=== PATIENT | female | born 1975 | race Caucasian/White ===

== ENCOUNTER → 2018-06-18 12:41 | Outpatient (CLI) | payer OTHER, SELFPAY ==
--- NOTE | 2018-06-18 12:44 | VDLE_ITS ---
Reason For Study: LEG PAIN AND SWELLING RIGHT LEFT GSV is normal. GSV is normal. CFV is compressible, spontaneous, phasic, CFV is compressible, spontaneous, phasic, competent and demonstrates normal competent, and demonstrates normal augmentation. augmentation. FV is compressible, spontaneous, phasic, FV is compressible, spontaneous, phasic, competent and demonstrates normal competent and demonstrates normal augmentation. augmentation. POP V is compressible, spontaneous, phasic, POP V is compressible, spontaneous, phasic, competent and demonstrates normal competent and demonstrates normal augmentation. augmentation. T/P Trunk is compressible. T/P Trunk is compressible. PTV is compressible. PTV is compressible. RT PerV is compressible. LT PerV is compressible. SFJ is competent SFJ is INCOMPETENT GSV is INCOMPETENT with reflux greater GSV is INCOMPETENT with reflux greater than .5 sec and diameter of .39 x .40 cm than .5 sec and diameter of .37 x .41 cm SSV is competent. SSV is competent. Procedure Exam performed in department. Interpretation Summary Deep veins of the lower extremities are bilaterally patent and compressible segmentally. There is no evidence of deep vein thrombosis on either side. Valvular competence appears intact within the proximal deep venous systems bilaterally. The greater saphenous veins appear bilaterally patent and compressible segmentally. The right sapheno-femoral junction is competent . The left sapheno- femoral junction is incompetent . Segmental valvular incompetence is noted within the greater saphenous veins bilaterally. Small saphenous veins are patent and competent bilaterally. Ordering Physician: MIRNA ZARCO Referring Physician: Mirna Zarco Performed By: Anita Puentes RVT
== END ==
PROVIDERS: Family Provider Nurse Practitioner; PCP Nurse Practitioner; Visit Provider Nurse Practitioner
DX: I83.90 Asymptomatic varicose veins of unspecified lower extremity (principal); M79.661 Pain in right lower leg; R60.9 Edema, unspecified
CPT/HCPCS: 93970

== ENCOUNTER → 2021-02-26 | Outpatient (CLI) | payer OTHER, SELFPAY ==
[2021-02-26 19:45] VITALS: BMI 23.8
[2021-02-26 21:58] LABS: Absolute Lymphocyte Count 3.12 X10^3/uL (0.83-4.51); Absolute Neutrophil Count 3.4 X10^3/uL (2.0-7.7); Basophil# 0.07 X10^3/uL; Eosinophil# 0.12 X10^3/uL; Eosinophils% 1.7 % (0-5); Hematocrit 43.8 % (37-47); Hemoglobin 14.9 g/dL (12.0-15.0); Lymphocyte # 3.12 X10^3/ul (0.83-4.51); Lymphocyte % 43.9 % (19-41); Mean Corpuscular Hgb 33.1 pg (27.0-32.0); Mean Corpuscular Volume 97.3 fL (81-99); Mean Platelet Vol. 10.5 fl (6.2-12.0); Monocyte# 0.41 X10^3/uL; Monocyte% 5.8 % (0-10); NRBC Flagged by Analyzer 0 % (0-5); Neutrophil # 3.38 X10^3/uL (2.7-7.7); Neutrophil % 47.5 % (47-70); Platelet Count 261 K/mm3 (150-450); RBC Distribution Width CV 11.7 % (11.6-14.6); RBC Distribution Width SD 42.4 fl (35.1-43.9); White Blood Count 7.1 K/mm3 (4.4-11.0)
[2021-02-26 22:12] LABS: ALB/GLOB Ratio 1.2 RATIO (0.9-2.4); AST(SGOT) 10 U/L (15-37); Alanine Aminotransfer ALT/SGPT 19 U/L (13-56); Alkaline Phosphatase 51 U/L (45-117); Anion Gap 4 (5-15); BUN 7 mg/dL (7-18); BUN/Creat Ratio 9.2 RATIO (10-20); Calcium,Total 8.5 mg/dL (8.5-10.1); Chloride 105 mmol/L (98-107); Cholesterol 194 mg/dL (200); Creatinine, Serum 0.76 mg/dL (0.55-1.02); EST Glomerular Filtration Rate 88 mL/min (>60); Est Glom Filt Rate - Afr Amer 106 mL/min (>60); Globulin 3.4 g/dL (2.2-4.2); Glucose 94 mg/dL (74-106); High Density Lipoprotein 65 mg/dL; Potassium 3.4 mmol/L (3.5-5.1); Protein, Total 7.4 g/dL (6.4-8.2); Sodium Level 138 mmol/L (136-145); Triglycerides 55 mg/dL; Very Low Density Lipoprotein 11 mg/dL (5-40)
== END | disposition home or self-care (01) ==
PROVIDERS: PCP Nurse Practitioner; Referring Provider Nurse Practitioner; Visit Provider Nurse Practitioner
DX: E78.00 Pure hypercholesterolemia, unspecified (principal); K43.9 Ventral hernia without obstruction or gangrene
CPT/HCPCS: 80053; 80061; 85025

== ENCOUNTER → 2021-04-06 | Outpatient (CLI) | payer OTHER, SELFPAY ==
[2021-04-06 19:36] VITALS: BMI 25.2
== END | disposition home or self-care (01) ==
PROVIDERS: Visit Provider Nurse Practitioner
DX: N30.90 Cystitis, unspecified without hematuria (principal)
CPT/HCPCS: 87086; 87088; 87186

== ENCOUNTER → 2022-04-27 | Outpatient (CLI) | payer OTHER, SELFPAY ==
[2022-04-27 23:36] LABS: Lyme Ab Screen Interpretation REF LAB
[2022-04-30 17:03] LABS: Lyme Scn Total Ab w/Rflx Negative (Negative)
== END | disposition home or self-care (01) ==
PROVIDERS: Visit Provider Nurse Practitioner
DX: S00.96XA Insect bite (nonvenomous) of unspecified part of head, initial encounter (principal); W57.XXXA Bitten or stung by nonvenomous insect and other nonvenomous arthropods, initial encounter
CPT/HCPCS: 86618

== ENCOUNTER → 2023-12-14 | Outpatient (CLI) | payer OTHER, SELFPAY ==
--- OUTSIDE RECORDS SUMMARY | 2023-12-14 21:57 | XMS RPT_ITS | CCD ---
Author Name Unknown Address [address] [place] [address] Organization [facility] Care Team Providers Care 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 Name Role Phone Mirna Zarco Primary Care Provider [phone] Lizbeth Montoya PA-C Unavailable [phone] Gerardo WILLARD.Mirna WARD Primary Care Provide r Teresa Daugherty MD Unavailable Jaylene Leonardo MD Unavailable Lizbeth Montoya PA-C Unavailable Gerardo WILLARD.Mirna WARD Primary Care Provide r Teresa Daugherty MD Unavailable Jaylene Leonardo MD Unavailable Mirna Zarco Primary Care Provider [phone] Gerardo Ms. Mirna Zavala Primary Care UnavailMD RIGOBERTO Otto Admitting Unavailable MD RIGOBERTO LEW Attending Dr. Raul Ponce Referring Unavailable Zarco, Ms. Mirna Zavala Primary Care UnavailMD RIGOBERTO Otto Admitting Unavailable MD RIGOBERTO LEW Attending Unavailable Dr. Raul Castelan Referring Unavailable MD RIGOBERTO LEW Admitting Unavailable MD RIGOBERTO LEW Attending Unavailable Dr. Raul Castelan Referring Unavailable Zarco, Ms. Mirna Zavala Primary Care Unavailab Jerome ELECTROSTATIC POWDER COATING TECHNICIAN-Jayesh WARDa L Primary Care Provide r Rigoberto Lew MD Unavailable MIRNA ZARCO Primary Care Unavailable RIGOBERTO LEW Attending Unavailable ZARCO, MIRNA L Primary Care Unavailable Zarco, Mirna Primary Care Provider CYNDIE MCCAIN Referring Unavailable ZARCO, MIRNA Primary Care Unavailable TERESA DAUGHERTY Referring Unavailable ZARCO, MIRNA Primary Care Unavailable CYNDIE MCCAIN Attending Unavailable CYNDIE MCCAIN Referring Unavailable ZARCO, MIRNA Primary Care Unavailable CYNDIE MCCAIN Attending Unavailable ZARCO, MIRNA Primary Care Unavailable LIZBETH MONTOYA Referring Unavailable ZARCO, MIRAN Primary Care Unavailable LIZBETH MONTOYA Referring Unavailable ZARCO, MIRNA Primary Care Unavailable CYNDIE MCCAIN Attending Unavailable CYNDIE MCCAIN Referring Unavailable ZARCO, MIRNA Primary Care Unavailable Allergies Allergy Classification Reported Allergen(s) Allergy Type Date of Onset Reaction(s) Facility (8 sources) Warfarin Drug Allergy 7 Nausea And Vomiting, GI Upset [place], [place] (11 sources) Ciprofloxacin; Translations: [CIPROFLOXACIN] Drug Allergy 1 Itching, Rash [facility] (5 sources) NITROFURANTOIN, MACROCRYSTALS / Nitrofurantoin, Monohydrate; Translations: [NITROFURANTOIN MONOHYD/M-CRYST] Drug Allergy 1 [facility] Work Phone: (11 sources) Warfarin; Translations: [WARFARIN] Drug Allergy 7 Other: See Comments, Nausea Only, Other, Nausea And Vomiting, Headache, Unknown, GI Upset [facility] (8 sources) Nitrofurantoin; Translations: [NITROFURANTOIN] Drug Allergy 1 [facility] Medications Current Medications Medication Drug Class(es) Dates Sig (Normalized) Sig (Original) acetaminophen 500 mg oral tablet (5 sources) Start: 10-01-2018 take 1 tablet by mouth every four hours as needed for pain acetaminophen (APAP EXTRA STRENGTH) 500 MG tablet Take 1 tablet by mouth every 4 hours as needed for Pain 50 tablet 0 10/01/2018 Active [id number] 200 actuat albuterol 0.09 mg/actuat metered dose inhaler (10 sources) beta2-Adrenergic Agonist Start: 09-20-2022 take 2 puff(s) by inhalation every four hours as needed for wheezing albuterol 108 (90 Base) MCG/ACT inhaler inhale 2 puffs into the lungs every 4 hours as needed for shortness of breath or wheezing. 0 09/20/2022 Active Completed/Discontinued Medications Medication Drug Class(es) Dates Sig (Normalized) Sig (Original) amoxicillin 875 mg / clavulanate 125 mg oral tablet (3 sources) Penicillin-class Antibacterial Start: 06-14-2022 End: 07-10-2023 amoxicillin-clavul anic acid (AUGMENTIN) 875-125 mg per tablet apixaban 5 mg oral tablet (2 sources) Factor Xa Inhibitor Start: 05-04-2023 ELIQUIS 5 mg tab(s) cefdinir 300 mg oral capsule (1 source) Cephalosporin Antibacterial Start: 03-20-2023 End: 07-10-2023 take 1 capsule by mouth every twelve hours cefdinir (OMNICEF) 300 mg capsule Take 1 capsule by mouth every 12 hours. 0 03/20/2023 07/10/2023 Discontinued Problems Active Problems Problem Classification Problem Date Documented Date Episodic/Chronic Acute cerebrovascular disease (3 sources) Cerebrovascular accident; Translations: [Cerebral infarction, unspecified] 09-15-2021 Chronic Chronic obstructive pulmonary disease and bronchiectasis (3 sources) Chronic bronchitis; Translations: [Unspecified chronic bronchitis] 09-15-2021 Chronic Melanomas of skin (4 sources) Malignant melanoma of skin, unspecified; Translations: [Malignant melanoma] Onset: 03-07-2023 09-05-2023 Chronic Menstrual disorders (20 sources) Menometrorrhagia; Translations: [Dysmenorrhea] Onset: 10-01-2018 10-01-2018 Chronic Nonmalignant breast conditions (6 sources) Breast lump; Translations: [Unspecified lump in the right breast, overlapping quadrants] Episodic Nutritional deficiencies (3 sources) Vitamin D deficiency; Translations: [Vitamin D deficiency, unspecified] Onset: 06-18-2021 06-18-2021 Chronic Other female genital disorders (12 sources) Abnormal uterine bleeding; Translations: [Abnormal uterine and vaginal bleeding, unspecified] Onset: 10-01-2018 10-01-2018 Chronic Other nutritional; endocrine; and metabolic disorders (1 source) Homocystinuria; 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] Onset: 03-07-2023 Chronic Pulmonary heart disease (7 sources) H/O: pulmonary embolus; Translations: [Personal history of pulmonary embolism] Onset: 03-07-2023 09-15-2021 Episodic Residual codes; unclassified (3 sources) Hereditary disorder of endocrine system; Translations: [Genetic susceptibility to other disease] 09-15-2021 Episodic Residual codes; unclassified (1 source) Family history of breast cancer; Translations: [Family history of malignant neoplasm of breast] Episodic Residual codes; unclassified (1 source) Past history of procedure; Translations: [Other specified postprocedural states] Episodic Residual codes; unclassified (1 source) At risk of breast cancer; Translations: [Other specified personal risk factors, not elsewhere classified] Episodic Unclassified (2 sources) Unspecified lump in the right breast, overlapping quadrants; Translations: [Unspecified lump in the right breast, overlapping quadrants] Onset: 09-14-2023 Viral infection (1 source) Herpes zoster; Translations: [Zoster without complications] Onset: 08-05-2023 08-05-2023 Episodic Past or Other Problems Problem Classification Problem Date Documented Da te Episodic/Chronic Abdominal hernia (3 sources) Obstruction co-occurrent and due to bilateral recurrent inguinal hernia; Translations: [Bilateral inguinal hernia, with obstruction, without gangrene, recurrent] Onset: 09-15-2021 09-17-2021 Episodic Other aftercare (12 sources) Long-term current use of anticoagulant; Translations: [senior care (current) use of anticoagulants] Onset: 10-01-2018 10-01-2018 Episodic Other screening for suspected conditions (not mental disorders or infectious disease) (13 sources) Patient encounter status; Translations: [Encounter for screening for malignant neoplasm of vagina] Onset: 02-06-2023 Episodic Results Test Name Value Interpretation Reference Range Facil ity Vital Signs Date Time Vital Sign Value Performing Clinician Facility 09-05-2023 10:10-0400 Body height 168.3 cm Rigoberto Lew MD Work Phone: [facility] 09-05-2023 10:10-0400 Body mass index (BMI) [Ratio] 27.43 kg/m2 Rigoberto Lew MD Work Phone: [facility] 09-05-2023 10:10-0400 Body temperature 97.9 [degF] Rigoberto Lew MD Work Phone: [facility] 09-05-2023 10:10-0400 Body weight 77.7 kg Rigoberto Lew MD Work Phone: [facility] 09-05-2023 10:10-0400 Diastolic blood pressure 74 mm[Hg] Rigoberto Lew MD Work Phone: [facility] 09-05-2023 10:10-0400 Heart rate 72 /min Rigoberto Lew MD Work Phone: [facility] 09-05-2023 10:10-0400 Respiratory rate 18 /min Rigoberto Lew MD Work Phone: [facility] 09-05-2023 10:10-0400 SaO2% (BldA) [Mass fraction] 97 % Rigoberto Lew MD Work Phone: [facility] 09-05-2023 10:10-0400 Systolic blood pressure 113 mm[Hg] Rigoberto Lew MD Work Phone: [facility] 07-10-2023 08:52-0400 Body height 170.2 cm Lizbeth Montoya PA-C Work Phone: [facility] 07-10-2023 08:52-0400 Body weight 79.38 kg Lizbeth Montoya PA-C Work Phone: [facility] 07-10-2023 08:52-0400 Diastolic blood pressure 78 mm[Hg] Lizbeth Montoya PA-C Work Phone: [facility] 07-10-2023 08:52-0400 Systolic blood pressure 116 mm[Hg] Lizbeth Montoya PA-C Work Phone: [facility] 02-23-2023 08:58-0400 Body height 167.6 cm Cyndie Calderonppard ELECTROSTATIC POWDER COATING TECHNICIAN - FOOD PREP WORKER Work Phone: [facility] Status Overload 02-23-2023 08:58-0400 Body mass index (BMI) [Ratio] 27.79 kg/m2 Cyndie Calderonppard ELECTROSTATIC POWDER COATING TECHNICIAN - FOOD PREP WORKER Work Phone: [facility] Status Overload 02-23-2023 08:58-0400 Body temperature 97.81 [degF] Cyndie Mccain ELECTROSTATIC POWDER COATING TECHNICIAN - FOOD PREP WORKER Work Phone: [facility] Status Overload 02-23-2023 08:58-0400 Body weight 78.11 kg Cyndieashok CalderonMccain ELECTROSTATIC POWDER COATING TECHNICIAN - FOOD PREP WORKER Work Phone: [facility] Status Overload 02-23-2023 08:58-0400 Diastolic blood pressure 70 mm[Hg] Cyndie Mccain ELECTROSTATIC POWDER COATING TECHNICIAN - FOOD PREP WORKER Work Phone: [facility] Status Overload 02-23-2023 08:58-0400 Systolic blood pressure 101 mm[Hg] Cyndie Mccain ELECTROSTATIC POWDER COATING TECHNICIAN - FOOD PREP WORKER Work Phone: [facility] Status Overload 06-15-2022 09:16-0400 Body height 170.2 cm Teresa Daugherty MD Work Phone: [facility] 06-15-2022 09:16-0400 Body weight 75.75 kg Teresa Daugherty MD Work Phone: [facility] 06-15-2022 09:16-0400 Diastolic blood pressure 80 mm[Hg] Teresa Daugherty MD Work Phone: [facility] 06-15-2022 09:16-0400 Systolic blood pressure 124 mm[Hg] Teresa Daugherty MD Work Phone: [facility] Encounters Encounter Date Encounter Type Care Provider Facility Start: 09-14-2023 Telephone encounter Cyndie bob ELECTROSTATIC POWDER COATING TECHNICIAN - FOOD PREP WORKER Work Phone: [facility] Start: 09-14-2023 End: 09-15-2023 ambulatory CYNDIE MCCAIN [facility] Start: 09-14-2023 End: 09-14-2023 Subsequent hospital visit by physician Cyndie Mccain APRN - FOOD PREP WORKER Work Phone: [facility] Imaging Procedures Date Procedure Procedure Detail Performing Clinician Start: 09-14-2023 Us breast uni real t roney with image limited Cyndie Lawson CNP Work Phone: Start: 02-28-2023 Mammography Rigoberto aguilera MD Work Phone: Start: 02-23-2023 Us breast uni real t roney with image limited Lizbeth Montoya Work Phone: Start: 02-23-2023 End: 02-23-2023 Mammography Lizbeth Montoya Work Phone: Start: 02-22-2023 Mammography Lizbeth Mariajose ith PA-C Work Phone: Start: 02-06-2023 Mammography Lizbeth Mariajose ith PA-C Work Phone: Start: 01-26-2022 End: 01-26-2022 Screening digital breast tomosynthesis bi Teresa Daugherty MD Work Phone: Start: 06-21-2021 Adult depression scr eening assessment Teresa Daugherty MD Work Phone: Start: 01-06-2021 Us breast uni real t roney with image limited Joe Cuevas Work Phone: Start: 01-06-2021 Diagnostic mammograp hy computer-aided detcj bi Joe Cuevas Work Phone: Start: 11-20-2020 Follow-up visit Start: 06-12-2020 Cul prsmptv pthgnc o rganism scrn w/[place] estimj Joe Cuevas Work Phone: Start: 06-10-2020 Us breast uni real t roney with image limited Teresa Daugherty Work Phone: Start: 06-10-2020 Diagnostic mammograp hy computer-aided detcj uni Teresa Daugherty Work Phone: Plan of Treatment Date Care Activity Detail Author Start: 06-15-2027 PAP TESTING PAP TESTING [facility] Start: 04-25-2027 LIPID SCREEN LIPID SCREEN [facility] Start: 2026 Zoster Vaccines (1 o f 2) Zoster Vaccines (1 of 2) [facility] Start: 06-21-2026 PAP TESTING PAP TESTING [facility] Start: 04-15-2026 HPV TESTING HPV TESTING [facility] Start: 04-25-2025 DIABETES SCREEN DIABETES SCREEN [facility] Start: 07-10-2024 COLORECTAL CANCER SCREENING COLORECTAL CANCER SCREENING [facility] Start: 07-10-2024 FECAL OCCULT BLOOD FECAL OCCULT BLOO D [facility] Start: 03-14-2024 End: 11-14-2024 DBT Breast - bilateral diagnostic Bilateral diagnostic mammogram with tomosynthesis Imaging Routine Mass overlapping multiple quadrants of right breast Expected: 03/14/2024, Expires: 11/14/2024 [facility] Work Phone: Immunizations Immunization Date Immunization Notes Care Provider [facility] 09-09-2022 Pfizer COVID-19 vaccine, bivalent, age 12 years and older (30 mcg/0.3 mL) Rigoberto Lew MD Work Phone: [facility] Work Phone: 10-26-2021 Pfizer SARS-CoV-2 Vaccination Cyndie Mccain ELECTROSTATIC POWDER COATING TECHNICIAN - FOOD PREP WORKER Work Phone: [facility] 03-14-2021 COVID-19 vaccine, ag e 12+ yr (PFIZER-BIONTECH - PURPLE TOP) Teresa Daugherty MD Work Phone: [facility] Work Phone: 02-19-2021 COVID-19 vaccine, ag e 12+ yr (PFIZER-BIONTECH - PURPLE TOP) Teresa Daugherty MD Work Phone: [facility] Work Phone: 07-30-2014 influenza, seasonal, injectable Teresa Daugherty MD Work Phone: [facility] Work Phone: 07-30-2014 influenza virus vaccine, unspecified formulation Cyndie Mccain ELECTROSTATIC POWDER COATING TECHNICIAN - FOOD PREP WORKER Work Phone: [facility] Payers Date Payer Category Payer Private Health Insurance [id number] 2022 Private Health Insurance [id number] 2022 Private Health Insurance [id number] 2019 Unknown [id number] 2018 Unknown [employer] M [employer] [address] [id number] 2018-Present [phone] [address] [place] [address] [id number] 2018 Unknown [id number] 2018 Unknown [employer] M [employer] [address] xxxxxxxxxxxx 2018-Present [phone] [address] [place] [address] xxxxxxxxxxxx [id number] 1976 Unknown [id number] 1976 Unknown [id number] 1976 Unknown [id number] 1976 Unknown [id number] 1976 Unknown [id number] Social History Date Type Detail Facility Start: 03-05-2019 End: 09-05-2023 Tobacco smoking status NHIS Never smoker [facility] [place] Start: 03-05-2019 End: 09-05-2023 Tobacco use and exposure Never used [facility] Start: 03-05-2019 End: 09-14-2023 Alcohol intake [facility] 1975 [facility] 1975 Sex Assigned At Female C [facility] History of tobacco use Passive smoker [facility] Start: 02-13-2023 End: 09-05-2023 Exposure to SARS-CoV-2 (event) Not sure [facility] Start: 07-10-2023 End: 09-14-2023 History of Social function [facility] Start: 07-10-2023 End: 09-14-2023 Tobacco use panel [facility] Adult Depression Screening Assessment 0 [facility] Start: 03-06-2021 Gender identity Identifies as female gender (finding) [facility] Start: 09-05-2023 Alcohol intake Lifetime non-d anders (finding) [facility] Work Phone: Clinical Notes 04-13-2021 to 09-20-2023 Telephone Encounter - Jumana Portillo - 09/20/2023 11:16 AM ESTTelephone Encounter - Jumana Portillo - 09/20/2023 11:16 AM ESTTelephone Encounter - Anuja Shay - 09/15/2023 9:49 AM EDT Note Date & Type Note Facility 09-20-2023 Telephone encounter Note Patient has been scheduled, notified and in agreement. [facility] 09-20-2023 Miscellaneous Notes Patient has been scheduled, notified and in agreement. Left message on voicemail to schedule. Left VM for Onel reviewing her results. She will need a bilateral diagnostic mammogram and right breast ultrasound due in 6 months. She will also be due for a follow-up appointment at the breast center. Findings: The patient presented for follow-up after benign right breast biopsy and for follow-up of two additional right breast masses. Again seen at the 6:00 biopsy site, 1 cm from the nipple, is a hypoechoic 1.4 x 1.1 x 1.4 cm mass with an adjacent biopsy clip. No further follow-up needed. Again seen at 5:30, 1 cm from the nipple, is a stable 0.7 x 0.2 x 0.8 cm cystic hypoechoic mass. Continued follow-up recommended. Again seen at 10:00, 6 cm from the nipple, is a 1.3 x 0.8 x 1.2 cm mostly anechoic mass with avascular septation. There has been no suspicious interval change. Continued follow-up recommended. IMPRESSION: Expected postbiopsy changes at 6:00. Continued follow-up recommended for two stable cystic masses most likely representing complicated cysts. ASSESSMENT: Category 3 Probably benign RECOMMENDATION: Diagnostic mammogram in 6 months Bilateral Breast ultrasound in 6 months Right documented in this encounter [facility] 09-15-2023 Telephone encounter Note Left message on voicemail to schedule. [facility] 09-14-2023 Telephone encounter Note Left for Onel reviewing her results. She will need a bilateral diagnostic mammogram and right breast ultrasound due in 6 months. She will also be due for a follow-up appointment at the breast center. Findings: The patient presented for follow-up after benign right breast biopsy and for follow-up of two additional right breast masses. Again seen at the 6:00 biopsy site, 1 cm from the nipple, is a hypoechoic 1.4 x 1.1 x 1.4 cm mass with an adjacent biopsy clip. No further follow-up needed. Again seen at 5:30, 1 cm from the nipple, is a stable 0.7 x 0.2 x 0.8 cm cystic hypoechoic mass. Continued follow-up recommended. Again seen at 10:00, 6 cm from the nipple, is a 1.3 x 0.8 x 1.2 cm mostly anechoic mass with avascular septation. There has been no suspicious interval change. Continued follow-up recommended. IMPRESSION: Expected postbiopsy changes at 6:00. Continued follow-up recommended for two stable cystic masses most likely representing complicated cysts. ASSESSMENT: Category 3 Probably benign RECOMMENDATION: Diagnostic mammogram in 6 months Bilateral Breast ultrasound in 6 months Right [facility] 09-05-2023 History of Present illness Narrative Patient ID: Onel Martin is a 47 y.o. female. Referring Physician: No referring provider defined for this encounter. Primary Care Provider: JAMISON Pearce ASSESSMENT, PROBLEM LIST, DECISION MAKING, PLAN. 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 She had a saddle emboli at that time. She had a pulmonary embolism in 1999 as well. She also had a blood clot in the left ethmoid sinus in the past as well. The patient is on lifelong Arixtra. Patient was offered to switch to xeralto which she declined Patient received Arixtra 7.5 mg subcu daily, until February 2023 when she was switched to Eliquis 5 mg p.o. 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 She had a CAT scan of the abdomen pelvis done by Kamilah Bullock and was found to have multiple hypodensity throughout the spleen, some of which were present on 2011 study, one of them were appeared to be complex measuring 1.3 cm, MRI was done for follow-up on 05 March 2019 again at [facility] and showed multiple hyperintense enhancing lesion within the spleen measuring up to 1.4 cm could be intermediate representing benign lesion such as hemangioma versus other Spleen USG was c/w Hemangioma in August 2020 Patient had a recurrence shingles in 2020 and again in February 2022 in a different dermatome, she was advised to get a shingles vaccination, although she checked and she will not be approved until 50 years of age by insurance. Pt had breast Bx on 06/12/2020 and was -ve at [facility] pt has Lt inguinal hernia and is followed by Dr Leonardo Melanoma was 0.2 mm on right inferior upper back, biopsy was on 07 December 2022 and xcision was on 22 December 2022 -Has been followed by Dr. Gonzalez INTERVAL HISTORY: The patient is here today for followup on the recurrent PE and DVTs. The patient is currently on Eliquis 5 mg p.o. twice daily started in February 2023 after she has been on Arixtra 7.5 mg subcu daily for a long time due to insurance coverage. Patient has been doing well, Denies any bleeding from any orifice PHYSICAL EXAM: GENERAL: Conscious, A and O x3, no acute distress. VITALS: Noted. HEENT: Normocephalic, AYLA, no icterus. Conjunctiva and pharynx are pink. Oral mucosa moist. No nasal discharge. NECK: Supple, no cervical/SC lymphadenopathy. CHEST: Bilateral symmetrical, bilateral AE. CVS: S1, S2, RR. ABDOMEN: Soft, NT, no hepatosplenomegaly/masses. BS + REHABILITATION PROGRAM COORDINATOR: Speech normal. EXTREMITIES: No C/C/E. SKIN: No petechiae. 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 She had a saddle emboli at that time. She had a pulmonary embolism in 1999 as well. She also had a blood clot in the left ethmoid sinus in the past as well. The patient was on lifelong anticoagulation and was on Arixtra until February 2023 and due to insurance coverage she has been switched to Eliquis 5 mg p.o. twice daily since February 2023, she denies any bleeding or major complication although she is not happy as she does not like how Eliquis makes her feel. But she is willing to take it at this time. 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 Patient had melanoma removed from right mid back area by Lillian Tipton/Dr. Gonzalez and it was early disease per patient, did not require lymph node biopsy, will obtain pathology report Melanoma was 0.2 mm on right inferior upper back, biopsy was on 07 December 2022 and excision was on 22 December 2022 Follow-up with PCP Mirna Zarco Follow-up in this instruction Continue Eliquis 5 mg p.o. twice daily RTC 6 m CBC, CMP, S homocystein level VITALS: BSA: 1.91 meters squared BP 113/74 (BP Location: Right arm, Patient Position: Sitting, BP Cuff Size: Adult) Pulse 72 Temp 36.6 C (97.9 F) (Temporal) Resp 18 Ht 1.683 m (5' 6.26 ) Wt 77.7 kg (171 lb 4.8 oz) SpO2 97% BMI 27.43 kg/m ALLERGY: Ciprofloxacin, Warfarin, Nitrofurantoin, and Nitrofurantoin monohyd/m-cryst SOCIAL HISTORY: She reports no history of alcohol use. She reports no history of drug use. LABS: Results from last 7 days Lab Units 09/04/23 0851 WBC AUTO x10*3/uL 7.1 HEMOGLOBIN g/dL 16.2* HEMATOCRIT % 47.8* PLATELETS AUTO x10*3/uL 250 NEUTROS PCT AUTO % 53.0 LYMPHS PCT AUTO % 38.6 MONOS PCT AUTO % 5.6 EOS PCT AUTO % 2.0 Results from last 7 days Lab Units 09/04/23 0851 SODIUM mmol/L 141 POTASSIUM mmol/L 3.9 CHLORIDE mmol/L 104 CO2 mmol/L 27 BUN mg/dL 11 CREATININE mg/dL 0.75 CALCIUM mg/dL 9.2 PROTEIN TOTAL g/dL 6.7 BILIRUBIN TOTAL mg/dL 0.9 ALK PHOS U/L 57 ALT U/L 10 AST U/L 12 GLUCOSE mg/dL 97 @LLFRR3@ IMAGING: No results found. Charting was completed using voice recognition technology and may include unintended errors. RIGOBERTO LEW MD, TOBIN. Ronen Field Master Clinician in Hematology and Oncology Vice President Of Customer Service, [facility]. [place] office [facility] /[place]. documented in this encounter [facility] Work Phone: 09-05-2023 Instructions Rigoberto Lew MD - 09/05/2023 10:15 AM EDT Follow-up in this instruction Continue Eliquis 5 mg p.o. twice daily, continue folic acid 1.6 mg p.o. daily RTC 6 m CBC, CMP, S homocystein level documented in this encounter [facility] Work Phone: 07-10-2023 History of Present illness Narrative SUBJECTIVE Onel Martin is a 47 year old woman who presents for her annual exam. Last pap- 06/15/22. Last mammo- 02/06/23. No LMP recorded (lmp unknown). Patient has had a hysterectomy. Denies vaginal itching, burning, discharge, or bleeding. She has some vasomotor sxs. Discussed health maintenance, including regular aerobic exercise, low sugar diet, and periodic exams. Offered Cologuard. HISTORIES FAMILY HISTORY Problem Relation Age of Onset Glaucoma Mother Liver Cancer Mother 59 Alcohol abuse Mother Hypertension Father Lung Cancer Father other (atrial fibrillation) Father Diabetes Paternal Grandmother Breast Cancer Maternal Aunt PAST MEDICAL HISTORY Diagnosis Date Chronic bronchitis (HCC) Depression DVT (deep venous thrombosis) (HCC) Fibrocystic breast Heart murmur Herpes labialis Inguinal hernia Melanoma (HCC) Menorrhagia Migraine MTHFR gene mutation MVP (mitral valve prolapse) Pulmonary embolism (HCC) Stroke (HCC) Uterine fibroid PAST SURGICAL HISTORY Procedure Laterality Date COLONOSCOPY HYSTERECTOMY 10/01/2018 robotic hyst, bilateral salpingectomy LOW BACK DISK SURGERY 1999 rods L3-4 MELANOMA WITH STAGING 12/2022 removed from back PAST SURGICAL HISTORY OF 09/17/2021 Open repair of right inguinal and femoral hernias and left inguinal hernia without mesh. Dr. 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 valACYclovir (VALTREX) 1 gram TAKE ONE TABLET BY MOUTH THREE TIMES DAILY FOR 7 DAYS cholecalciferol, vitamin D3, (VITAMIN D3 ORAL) Take 1 capsule by mouth once daily. ZINC ORAL Take 1 tablet by mouth once daily. ascorbic acid (VITAMIN C ORAL) Take 1 tablet by mouth once daily. multivitamin tablet Take 1 tablet by mouth once daily. albuterol (PROVENTIL) 2.5 mg /3 mL (0.083 %) nebulizer solution INHALE 3ML EVERY 4 HOURS NEEDED FOR SHORTNESS OF BREATH OR WHEEZING APPLE CIDER VINEGAR ORAL Take by mouth. FOLIC ACID ORAL Take by mouth once daily. No current facility-administered medications for this visit. 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 HEENT: Within normal limits NECK: Supple, no thyromegaly BREASTS: No masses, no nipple discharge HEART: Regular rate and rhythm without murmur, rub, or gallop LUNGS: Clear bilaterally to auscultation ABDOMEN: No masses, non tender, no hernias, no hepatosplenomegaly PELVIC: EGBUS: No lesions, normal appearance VAGINA: No discharge, no blood, no lesions CERVIX: absent UTERUS: Absent ADNEXA: Non tender, no masses RECTOVAGINAL: Neg for heme or mass (FIT) EXTREMITIES: No edema, no calf tenderness NEUROLOGICAL: Grossly intact ASSESSMENT/PLAN: 1. Women's annual routine gynecological examination - ICD9: V72.31, ICD10: Z01.419 (primary diagnosis) - Completed pelvic and breast exam - Completed pap exam - Encouraged monthly BSE - Follow up for annual exam in one year. - PAP REFLEX HPV MRNA WHEN ASCUS 2. Encounter for screening for malignant neoplasm of vagina - ICD9: V76.47, ICD10: Z12.72 - PAP REFLEX HPV MRNA WHEN ASCUS 3. Breast cancer screening by mammogram - ICD9: V76.12, ICD10: Z12.31 - TANESHA SCREENING 4. Encounter for colorectal cancer screening - ICD9: V76.51, V76.41, ICD10: Z12.11, Z12.12 - COLOGUARD Lizbeth Montoya PA-C Return in about 1 year (around 07/10/2024) for Annual Exam. documented in this encounter [facility] 03-07-2023 Telephone encounter Note Scheduled for 09/04/23 [facility] 03-07-2023 Miscellaneous Notes Scheduled for 09/04/23 Patient has been scheduled, notified and in agreement. I spoke to Onel about her benign biopsy results. Plan for RT breast US in Aug 2023 PATHOLOGY OUTCOME: Benign PATHOLOGY RESULT: Imaging and pathology are concordant. Fibroepithelial proliferation consistent with fibroadenoma. RECOMMENDATION: Breast ultrasound in 6 months Right Left VM for Onel to review her biopsy results Tissue exam: [id number] Order: [id number] Collected 02/28/2023 11:21 Status: Final result Visible to patient: No (inaccessible in MyChart) Dx: Mass overlapping multiple quadrants o... 0 Result Notes 1 Follow-up Encounter Component Final Diagnosis A. BREAST, RIGHT, CORE BIOPSY - FIBROEPITHELIAL PROLIFERATION, CONSISTENT WITH FIBROADENOMA - NEGATIVE FOR MALIGNANCY at 0925 As long as her benign biopsy is concordant with radiology plan will be for right breast ultrasound in 6 months. She also needs follow-up of the right breast mass at 10:00 in 6 months. documented in this encounter [facility] 03-07-2023 Note Clinic Note: Education Assessment: Learning BarriersNo barriers TaughtPatient Primary Language of PatientEnglish Primary Language of Guevara LearnerEnglish New Patient/Pre-treatment: Topic(s): New Patient Pre-Treatment Follow up plan MethodVerbal Nursing Note: Nursing NoteArixtra to continue as ordered. Refill due and requesting to be sent to [facility]. Patient with new insurance. Will obtain pathology from Dr Gonzalez January and [facility]. Follow-up in 6 months with labs prior at [facility]. Call back instructions reviewed. Patient verbalize understanding. Electronic Signatures: Estella Leal (RN) (Signed 07-Mar-2023 10:50) Authored: Education Assessment, New Patient/Pre-treatment, Nursing Note Last Updated: 07-Mar-2023 10:50 by Estella Leal) [facility] 03-02-2023 Telephone encounter Note Patient has been scheduled, notified and in agreement. [facility] 03-02-2023 Telephone encounter Note I spoke to Onel about her benign biopsy results. Plan for RT breast US in Aug 2023 [facility] 03-02-2023 Telephone encounter Note PATHOLOGY OUTCOME: Benign PATHOLOGY RESULT: Imaging and pathology are concordant. Fibroepithelial proliferation consistent with fibroadenoma. RECOMMENDATION: Breast ultrasound in 6 months Right [facility] Status Overload 03-02-2023 Telephone encounter Note Left VM for Onel to review her biopsy results Tissue exam: [id number] Order: [id number] Collected 02/28/2023 11:21 Status: Final result Visible to patient: No (inaccessible in MyChart) Dx: Mass overlapping multiple quadrants o... 0 Result Notes 1 Follow-up Encounter Component Final Diagnosis A. BREAST, RIGHT, CORE BIOPSY - FIBROEPITHELIAL PROLIFERATION, CONSISTENT WITH FIBROADENOMA - NEGATIVE FOR MALIGNANCY at 0925 As long as her benign biopsy is concordant with radiology plan will be for right breast ultrasound in 6 months. She also needs follow-up of the right breast mass at 10:00 in 6 months. [facility] 02-28-2023 Note Level of Consciousne ss & Pain Pre Procedure: [x]Alert & Oriented []Confused & Disoriented []Other Allergies to Lidocaine: [] Yes [x] No Blood Thinners: [] Yes [x] No if yes, please list: Pain: [x] None [] Present please describe: Local Anesthesia: [x]Lidocaine 1% 10 mL Probe Used: [x] 14 Gauge Probe (Bard) [] 14 Gauge Probe (Achieve) Specimen: [x] Clip Placed [x] Specimen A [x] Right [] Left Position: 6:00 1 cm FN Samples 3 Lot Number [id number] Shape: []Tumark X [x]Tumark Q []Hydromark Butterfly Coil []Securmark Cork []Securmark Tophat Intraprocedure Notes: Pain: 0/10 Bleeding [] None [x] Scant [] Small [] Large [] EBL Post Mammo [] Yes [] No Biopsy Site Care: [x] Pressure [x] Steri-Strip and Tegaderm [x] Cold Pack [] Maxwell Level of Consciousness & Pain Post Procedure: 0/10 [x] Pt tolerated procedure without any complications [] Pt had vasovagal reaction [x] Alert & Oriented [] Confused & Disoriened [] Other Pain: [x] Post Procedure: Patient Discharge instructions given to patient, verbalizes Understanding. Discharge: Time 1132am Accompanied by: N/a To: home at 1132am [facility] 02-23-2023 History of Present illness Narrative Images from the original note were not included. Chief Complaint Patient presents with Follow-up Rt breast mass HPI: Onel Martin is a 47 y.o. female who presents for H&P prior to biopsy 1. Her recent screening mammogram noted asymmetry in her right breast. She has BI-RADS D breast density. Diagnostic imaging showed multiple cysts along with a 1.4 cm lobulated mass at 6:00, 1 cm from the nipple in her right breast. Biopsy of the mass at 6:00 is recommended. She is also recommended for short-term follow-up of a probable 1.2 cm complicated cyst at 10:00, 6 cm from the nipple in her right breast. 2. She has a history of 3 benign left breast biopsies in April 2009 x2 (fibroadenomas) and May 2020 (benign breast stroma). Today, She has no breast concerns. She denies breast mass, skin change, nipple change, or nipple discharge. 3. Biopsy explained. Patient agreeable. She does not have an allergy to lidocaine. She takes arixtra due her MTHFR gene mutation. She will stop it 24 hours before her biopsy and resume 24 hours post biopsy. 4. Breast imaging includes: Right diagnostic mammogram right breast ultrasound 02/23/2023 TISSUE DENSITY: BIRADS D - The breast tissue is extremely dense, which may lower the sensitivity of mammography. Images were reviewed with CAD. FINDINGS: The patient is a 47-year-old who was recalled from a screening mammogram dated 02/06/2023 for asymmetry in the middle third of the lateral right breast in the cc view. Additional views are performed. There are numerous partially is circumscribed and circumscribed masses throughout the right breast in a typical benign pattern. Asymmetry in the lateral aspect of the middle third of the right breast is redemonstrated. Additionally, there is a focal asymmetry in the middle depth of the inferior medial right breast. The patient was sent for ultrasound. BREAST ULTRASOUND: FINDINGS: Targeted ultrasound of the right breast was performed at. The upper outer quadrant of the right breast was surveyed. There are innumerable subcentimeter cysts. At the 10:00 position 6 cm from the nipple there is a complicated cyst measuring 1.2 x 0.8 x 1.2 cm. There is no vascular flow. Short-term follow-up is recommended. This likely accounts for the mammographic asymmetry. At the 10:30 position 7 cm from the nipple there is a simple cyst measuring 1.1 x 0.6 x 0.9 cm. At the 6:00 position 1 cm from the nipple correlating with the focal asymmetry in the inferior medial right breast there is a hypoechoic mass with mildly lobulated margins. There is posterior acoustic enhancement. No vascular flow is identified. It measures 1.4 x 1.4 x 1.1 cm. Biopsy is recommended. At the 5:30 position 1 cm from the nipple there is a hypoechoic mass with avascular internal echoes measuring 0.8 x 1.1 x 0.4 cm compatible with a complicated cyst. The right axilla was surveyed and there is no evidence of axillary lymphadenopathy. IMPRESSION: Biopsy is recommended for a hypoechoic lobulated mass at the 6:00 position. Short-term follow-up is recommended for a complicated cyst at the 10:00 position and 5:30 position. Multiple simple cysts are noted. ASSESSMENT: Category 4 Suspicious RECOMMENDATION: Surgical Consultation Right Ultrasound guided core biopsy Right Breast ultrasound in 6 months Right Risk Factors: Menarche: Age 16 Age of first : Nulliparous Menopause: Premenopausal, hysterectomy in 2018, retains both ovaries Smoking: None ETOH: None She has a personal history of melanoma removed from her back. Family history includes: Mother-liver cancer Father-questionable lung cancer Maternal aunt-probable breast cancer The lifetime.1. The estimated risk of a BRCA 1/2 mutation predicted by BRCAPRO is 0.3%. The estimated risk of a mutation in an HNPCC related gene is 0.1%. The patient does not meet NCCN criteria for genetic testing for hereditary cancer. Past Medical History: Diagnosis Date Depression Fibrocystic breast Herpes labialis Hyperhomocysteinemia (HCC) Menorrhagia Migraine MTHFR gene mutation Pulmonary embolism (HCC) 15 years ago Stroke (HCC) ? Past Surgical History: Procedure Laterality Date BACK SURGERY BREAST BIOPSY HYSTERECTOMY OTHER SURGICAL HISTORY 10/01/2018 Robotic hysterectomy, bilateral salpingectomy OTHER SURGICAL HISTORY Mole removal SKIN CANCER EXCISION 2022 Allergies Allergen Reactions Ciprofloxacin Itching and Rash Warfarin Nausea Only, Other, Nausea And Vomiting and Headache Other reaction(s): lathargic, sick Aching and swelling Nitrofurantoin Rash Current Outpatient Medications on File Prior to Visit Medication Sig Dispense Refill albuterol 108 (90 Base) MCG/ACT inhaler inhale 2 puffs into the lungs every 4 hours as needed for shortness of breath or wheezing. ascorbic acid (Vitamin C) 125 mg chewable tablet Chew 1 tablet in the morning. cholecalciferol (D3-5) 5,000 Units tablet Take by mouth daily. folic acid (Folvite) 0.2 MG solution Take by mouth daily. fondaparinux (Arixtra) 7.5 MG/0.6ML solution Inject 7.5 mg under the skin. gabapentin (Neurontin) 100 MG capsule take 2 capsules (200 mg) by mouth 3 times daily for post herpetic neuralgia. Multiple Vitamin (Multi-Vitamin) tablet Take 1 tablet by mouth in the morning. Multiple Vitamin (Multi-Vitamin) tablet Take by mouth daily. predniSONE (Deltasone) 20 MG tablet take 2 tablets (40 mg) by mouth daily. zinc, chelated 12.5 mg tablet split tablet Take 1 tablet by mouth in the morning. No current facility-administered medications on file prior to visit. Review of Systems Constitutional: Negative. HENT: Negative. Eyes: Negative. Respiratory: Negative. Cardiovascular: Negative. Gastrointestinal: Negative. Endocrine: Negative. Genitourinary: Negative. Musculoskeletal: Negative. Allergic/Immunologic: Negative. Neurological: Negative. Hematological: Negative. Psychiatric/Behavioral: Negative. BP 101/70 (BP Location: Left arm, Patient Position: Sitting) Temp 36.6 C (97.8 F) Ht 5' 6 (1.676 m) Wt 172 lb 3.2 oz (78.1 kg) BMI 27.79 kg/m Physical Exam Constitutional: General: She is not in acute distress. Appearance: Normal appearance. HENT: Head: Normocephalic and atraumatic. Pulmonary: Effort: Pulmonary effort is normal. No respiratory distress. Chest: Breasts: Right: Mass present. No swelling, inverted nipple, nipple discharge or skin change. Left: Normal. No swelling, inverted nipple, mass, nipple discharge or skin change. Comments: Bilateral dense fibrocystic breast tissue which is more prominent superiorly Musculoskeletal: Cervical back: Neck supple. Lymphadenopathy: Cervical: Right cervical: No superficial cervical adenopathy. Left cervical: No superficial cervical adenopathy. Upper Body: Right upper body: No axillary adenopathy. Left upper body: No axillary adenopathy. Skin: General: Skin is warm and dry. Neurological: General: No focal deficit present. Mental Status: She is alert and oriented to person, place, and time. Psychiatric: Mood and Affect: Mood normal. Behavior: Behavior normal. Assessment/Plan: 1. Mass overlapping multiple quadrants of right breast Right ultrasound-guided core biopsy Call with results If results are benign plan for follow-up imaging in 6 months. If results require surgical intervention she will follow-up with the first available breast surgeon She is also recommended for a right breast ultrasound in 6 months for a complicated cyst in her right breast at 10:00. - BI US guided breast biopsy right; Future 2. Dense breast tissue BI-RADS D breast density Consider screening with breast MRI 3. Family history of breast cancer Her maternal aunt potentially had breast cancer. Her lifetime risk of breast cancer estimated by the Tyrer Cuzick v8 model is > 20%. Plan for annual follow-up in the breast 4. History of left breast biopsy She has history of 3 benign left breast biopsies. 5. Increased risk of breast cancer See #3 SUDHEER eLong CNP Please disregard any typographical errors. This note was dictated using voice recognition software. documented in this encounter [facility] 02-06-2023 Miscellaneous Notes Patient is aware and will schedule. Yasmeen Mccracken Pt's mammogram was Incomplete ; they recommend additional imaging with bilateral diagnostic mammogram and ultrasound if needed. Orders printed and mailed. Lizbeth Montoya PA-C documented in this encounter [facility] 09-06-2022 Note Clinic Note: Education Assessment: Learning BarriersNo barriers TaughtPatient Primary Language of PatientEnglish Primary Language of Guevara LearnerEnglish New Patient/Pre-treatment: Topic(s): New Patient Pre-Treatment Follow up plan MethodVerbal Nursing Note: Nursing NoteArixtra to continue as ordered. Follow-up in 6 months with labs prior. Refill sent as ordered. Call back instructions reviewed. Patient verbalize understanding. Electronic Signatures: Estella Leal (RN) (Signed 06-Sep-2022 10:12) Authored: Education Assessment, New Patient/Pre-treatment, Nursing Note Last Updated: 06-Sep-2022 10:12 by Estella Leal (RN) [facility] 06-15-2022 Note HNO ID: [id number] Author: Teresa Daugherty MD Service: ? Author Type: Physician Type: Progress Notes Filed: 06/15/2022 9:38 AM Note Text: SUBJECTIVE Onel Martin is a 46 year old woman who presents for her annual exam: Last pap 07/03, Mammo 02/01, Bone Density never, No LMP recorded (lmp unknown). Patient has had a hysterectomy.. Medications, Allergies, Surgeries, Family History updated and smoking status updated. Discussed health maintenance, including regular aerobic exercise, low fat diet, and periodic exams. HISTORIES FAMILY HISTORY Problem Relation Age of Onset - Glaucoma Mother - Liver Cancer Mother 59 - Alcohol abuse Mother - Hypertension Father - Lung Cancer Father - other (atrial fibrillation) Father - Diabetes Paternal Grandmother - Breast Cancer Maternal Aunt PAST MEDICAL HISTORY Diagnosis Date - Chronic bronchitis (HCC) - Depression - DVT (deep venous thrombosis) (HCC) - Fibrocystic breast - Heart murmur - Herpes labialis - Inguinal hernia - Menorrhagia - Migraine - MTHFR gene mutation - Pulmonary embolism (HCC) - Stroke (HCC) - Uterine fibroid PAST SURGICAL HISTORY Procedure Laterality Date - CYST/MOLE REMOVAL - HYSTERECTOMY 10/01/2018 robotic hyst, bilateral salpingectomy - LOW BACK DISK SURGERY 1999 rods L3-4 - PAST SURGICAL HISTORY OF 09/17/2021 Open repair of right inguinal and femoral hernias and left inguinal hernia without mesh. Dr. Leonardo ACTIVE PROBLEM LIST Vitamin D Deficiency Bilateral Recurrent Inguinal Hernia With Obstruction and Without Gangrene Questionable stroke vs complex migraine Chronic Bronchitis (Hcc) History of Pulmonary Embolism Mthfr Gene Mutation ALLERGIES Allergen Reactions - Ciprofloxacin Itching - Coumadin [Warfarin] Other: See Comments Aching and swelling - Macrobid [Nitrofura* Rash - Warfarin Sodium GI Upset Current Outpatient Medications Medication Sig - amoxicillin-clavulanic acid (AUGMENTIN) 875-125 mg per tablet - gabapentin (NEURONTIN) 100 mg capsule take 2 capsules (200 mg) by mouth 3 times daily for post herpetic neuralgia. - valACYclovir (VALTREX) 1 gram TAKE ONE TABLET BY MOUTH THREE TIMES DAILY FOR 7 DAYS - cholecalciferol, vitamin D3, (VITAMIN D3 ORAL) Take 1 capsule by mouth once daily. - ZINC ORAL Take 1 tablet by mouth once daily. - ascorbic acid (VITAMIN C ORAL) Take 1 tablet by mouth once daily. - multivitamin tablet Take 1 tablet by mouth once daily. - albuterol (PROVENTIL) 2.5 mg /3 mL (0.083 %) nebulizer solution INHALE 3ML EVERY 4 HOURS NEEDED FOR SHORTNESS OF BREATH OR WHEEZING - fondaparinux (ARIXTRA) 7.5 mg/0.6 mL syrg 7.5 mg by SUBDERMAL route. - APPLE CIDER VINEGAR ORAL Take by mouth. - FOLIC ACID ORAL Take by mouth once daily. No current facility-administered medications for this visit. 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 HEENT: Within normal limits NECK: Supple, no thyromegaly BREASTS: No masses, no nipple discharge HEART: Regular rate and rhythm without murmur, rub, or gallop LUNGS: Clear bilaterally to auscultation ABDOMEN: No masses, non tender, no hernias, no hepatosplenomegaly PELVIC: EGBUS: No lesions, normal appearance VAGINA: No discharge, no blood, no lesions CERVIX: absent UTERUS: Absent ADNEXA: Non tender, no masses RECTOVAGINAL: Neg for heme or mass (FIT) EXTREMITIES: No edema, no calf tenderness NEUROLOGICAL: Grossly intact ASSESSMENT/PLAN: 1. Gynecologic exam normal - ICD9: V72.31, ICD10: Z01.419 (primary diagnosis) - Completed pelvic and breast exam - Encouraged monthly BSE - Follow up for annual exam in one year. - PAP REFLEX HPV MRNA WHEN ASCUS - TANESHA SCREENING W ROBINSON 2. Encounter for screening for malignant neoplasm of vagina - ICD9: V76.47, ICD10: Z12.72 - PAP REFLEX HPV MRNA WHEN ASCUS 3. Breast cancer screening by mammogram - ICD9: V76.12, ICD10: Z12.31 - TANESHA SCREENING W ROBINSON MD Yasmeen Son [facility] 06-15-2022 History of Present illness Narrative SUBJECTIVE Onel Martin is a 46 year old woman who presents for her annual exam: Last pap 07/03, Mammo 02/01, Bone Density never, No LMP recorded (lmp unknown). Patient has had a hysterectomy.. Medications, Allergies, Surgeries, Family History updated and smoking status updated. Discussed health maintenance, including regular aerobic exercise, low fat diet, and periodic exams. HISTORIES FAMILY HISTORY Problem Relation Age of Onset Glaucoma Mother Liver Cancer Mother 59 Alcohol abuse Mother Hypertension Father Lung Cancer Father other (atrial fibrillation) Father Diabetes Paternal Grandmother Breast Cancer Maternal Aunt PAST MEDICAL HISTORY Diagnosis Date Chronic bronchitis (HCC) Depression DVT (deep venous thrombosis) (HCC) Fibrocystic breast Heart murmur Herpes labialis Inguinal hernia Menorrhagia Migraine MTHFR gene mutation Pulmonary embolism (HCC) Stroke (HCC) Uterine fibroid PAST SURGICAL HISTORY Procedure Laterality Date CYST/MOLE REMOVAL HYSTERECTOMY 10/01/2018 robotic hyst, bilateral salpingectomy LOW BACK DISK SURGERY 1999 rods L3-4 PAST SURGICAL HISTORY OF 09/17/2021 Open repair of right inguinal and femoral hernias and left inguinal hernia without mesh. Dr. Leonardo ACTIVE PROBLEM LIST Vitamin D Deficiency Bilateral Recurrent Inguinal Hernia With Obstruction and Without Gangrene Questionable stroke vs complex migraine Chronic Bronchitis (Hcc) History of Pulmonary Embolism Mthfr Gene Mutation ALLERGIES Allergen Reactions Ciprofloxacin Itching Coumadin [Warfarin] Other: See Comments Aching and swelling Macrobid [Nitrofura* Rash Warfarin Sodium GI Upset Current Outpatient Medications Medication Sig amoxicillin-clavulanic acid (AUGMENTIN) 875-125 mg per tablet gabapentin (NEURONTIN) 100 mg capsule take 2 capsules (200 mg) by mouth 3 times daily for post herpetic neuralgia. valACYclovir (VALTREX) 1 gram TAKE ONE TABLET BY MOUTH THREE TIMES DAILY FOR 7 DAYS cholecalciferol, vitamin D3, (VITAMIN D3 ORAL) Take 1 capsule by mouth once daily. ZINC ORAL Take 1 tablet by mouth once daily. ascorbic acid (VITAMIN C ORAL) Take 1 tablet by mouth once daily. multivitamin tablet Take 1 tablet by mouth once daily. albuterol (PROVENTIL) 2.5 mg /3 mL (0.083 %) nebulizer solution INHALE 3ML EVERY 4 HOURS NEEDED FOR SHORTNESS OF BREATH OR WHEEZING fondaparinux (ARIXTRA) 7.5 mg/0.6 mL syrg 7.5 mg by SUBDERMAL route. APPLE CIDER VINEGAR ORAL Take by mouth. FOLIC ACID ORAL Take by mouth once daily. No current facility-administered medications for this visit. 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 HEENT: Within normal limits NECK: Supple, no thyromegaly BREASTS: No masses, no nipple discharge HEART: Regular rate and rhythm without murmur, rub, or gallop LUNGS: Clear bilaterally to auscultation ABDOMEN: No masses, non tender, no hernias, no hepatosplenomegaly PELVIC: EGBUS: No lesions, normal appearance VAGINA: No discharge, no blood, no lesions CERVIX: absent UTERUS: Absent ADNEXA: Non tender, no masses RECTOVAGINAL: Neg for heme or mass (FIT) EXTREMITIES: No edema, no calf tenderness NEUROLOGICAL: Grossly intact ASSESSMENT/PLAN: 1. Gynecologic exam normal - ICD9: V72.31, ICD10: Z01.419 (primary diagnosis) - Completed pelvic and breast exam - Encouraged monthly BSE - Follow up for annual exam in one year. - PAP REFLEX HPV MRNA WHEN ASCUS - TANESHA SCREENING W ROBINSON 2. Encounter for screening for malignant neoplasm of vagina - ICD9: V76.47, ICD10: Z12.72 - PAP REFLEX HPV MRNA WHEN ASCUS 3. Breast cancer screening by mammogram - ICD9: V76.12, ICD10: Z12.31 - TANESHA SCREENING W ROBINSON MD Yasmeen Son documented in this encounter [facility] 04-26-2022 Note Clinic Note: Education Assessment: Learning BarriersNo barriers TaughtPatient Primary Language of PatientEnglish Primary Language of Guevara LearnerEnglish New Patient/Pre-treatment: Topic(s): New Patient Pre-Treatment Follow up plan MethodVerbal Nursing Note: Nursing NotePatient ot follow-up in 6 months with labs prior. Arixtra to continue as ordered. Refill sent as ordered. Work letter provided as requested. Call back instructions reviewed. Patient verbalize understanding. Addendum Estella Leal RN - Patient decided to have labs same day due to gas cost. Electronic Signatures: Estella Leal (RN) (Signed 26-Apr-2022 11:20) Authored: Education Assessment, New Patient/Pre-treatment, Nursing Note Last Updated: 26-Apr-2022 11:20 by Estella Leal (RN) [facility] 10-04-2021 Note HNO ID: [id number] Author: Jaylene Leonardo MD Service: ? Author Type: Physician Type: Progress Notes Filed: 10/04/2021 9:52 AM Note Text: HPI: Onel returns s/p open bilateral inguinal hernia repair with primary closure. Doing well. EXAM: There were no vitals taken for this visit. [facility] PATHOLOGY: none ASSESSMENT: (Z98.890, Z87.19) S/P bilateral inguinal hernia repair (primary encounter diagnosis) Onel returns s/p open bilateral inguinal hernia repair with primary closure. She has had an uncomplicated postop course. She will continue to monitor her activities for another month. She can return to see me as needed. No orders found for this visit on 09/30/21. Jaylene Leonardo MD [facility] 06-21-2021 Note HNO ID: [id number] Author: Lizbeth Montoya PA-C Service: ? Author Type: Physician Production Associate Type: Progress Notes Filed: 06/21/2021 5:10 PM Note Text: SUBJECTIVE Onel Martin is a 45 year old woman who presents for her annual exam. Last pap- 05/27/20; discussed cotesting for HPV this year. Last mammo- 06/10/20. No LMP recorded (lmp unknown). Patient has had a hysterectomy. Denies vaginal itching, burning, discharge, or bleeding. Discussed health maintenance, including regular aerobic exercise, low sugar diet, and periodic exams. She is hesitant about scheduling hernia surgery. Declines flu vaccine. HISTORIES FAMILY HISTORY Problem Relation Age of Onset - Glaucoma Mother - Liver Cancer Mother 59 - Alcohol abuse Mother - Hypertension Father - Lung Cancer Father - other (atrial fibrillation) Father - Diabetes Paternal Grandmother - Breast Cancer Maternal Aunt PAST MEDICAL HISTORY Diagnosis Date - Depression - DVT (deep venous thrombosis) (HCC) - Fibrocystic breast - Heart murmur - Herpes labialis - Inguinal hernia - Menorrhagia - Migraine - MTHFR gene mutation - Pulmonary embolism (HCC) - Stroke (HCC) - Uterine fibroid PAST SURGICAL HISTORY Procedure Laterality Date - CYST/MOLE REMOVAL - HYSTERECTOMY 10/01/2018 robotic hyst, bilateral salpingectomy - LOW BACK DISK SURGERY 05/2007 rods L3-4 Social History Tobacco Use - Smoking status: Passive Smoke Exposure - Never Smoker - Smokeless tobacco: Never Used Vaping Use - Vaping Use: Never used Substance Use Topics - Alcohol use: No - Drug use: No ACTIVE PROBLEM LIST Hernia of Anterior Abdominal Wall Vitamin D Deficiency ALLERGIES Allergen Reactions - Coumadin [Warfarin] Other: See Comments Aching and swelling - Macrobid [Nitrofura* Rash - Warfarin Sodium GI Upset Current Outpatient Medications Medication Sig - albuterol (PROVENTIL) 2.5 mg /3 mL (0.083 %) nebulizer solution INHALE 3ML EVERY 4 HOURS NEEDED FOR SHORTNESS OF BREATH OR WHEEZING - cyanocobalamin, vitamin B-12, 1,000 mcg/mL kit Inject as directed - fondaparinux (ARIXTRA) 7.5 mg/0.6 mL syrg 7.5 mg by SUBDERMAL route. - APPLE CIDER VINEGAR ORAL Take by mouth. - FOLIC ACID ORAL Take by mouth once daily. No current facility-administered medications for this visit. 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 HEENT: Within normal limits NECK: Supple, no thyromegaly BREASTS: No masses, no nipple discharge HEART: Regular rate and rhythm without murmur, rub, or gallop LUNGS: Clear bilaterally to auscultation ABDOMEN: No masses, non tender, no hernias, no hepatosplenomegaly PELVIC: EGBUS: No lesions, normal appearance VAGINA: No discharge, no blood, no lesions CERVIX: Absent UTERUS: Absent ADNEXA: Non tender, no masses RECTOVAGINAL: Not examined EXTREMITIES: No edema, no calf tenderness NEUROLOGICAL: Grossly intact ASSESSMENT/PLAN: 1. Women's annual routine gynecological examination - ICD9: V72.31, ICD10: Z01.419 (primary diagnosis) - Completed pelvic and breast exam - Completed pap exam - Encouraged monthly BSE - Follow up for annual exam in one year. - PAP REFLEX HPV MRNA WHEN ASCUS 2. Encounter for screening for malignant neoplasm of vagina - ICD9: V76.47, ICD10: Z12.72 - PAP REFLEX HPV MRNA WHEN ASCUS 3. Breast cancer screening by mammogram - ICD9: V76.12, ICD10: Z12.31 - Completed breast exam - Set up for mammogram, yearly mammogram recommended - Encouraged monthly BSE - Follow up for annual exam in one year. - TANESHA SCREENING 4. Needs flu shot - ICD9: V04.81, ICD10: Z23 Lizbeth Montoya PA-C Return in about 1 year (around 06/21/2022) for Annual Exam. [facility] documented as of this encounter (statuses as of 06/15/2022) [facility] History of Past illness Narrative* Problem Noted Date Resolved Date Hernia of anterior abdominal wall 04/13/2021 09/15/2021 documented as of this encounter (statuses as of 02/06/2023) [facility] History of Past illness Narrative* Problem Noted Date Diagnosed Date Resolved Date Hernia of anterior abdominal wall 04/13/2021 09/15/2021 documented as of this encounter (statuses as of 07/10/2023) [facility] Gynecologic exam normal- Primary Encounter for screening for malignant neoplasm of vagina Special screening for malignant neoplasms, vagina Breast cancer screening by mammogram [facility] Diagnosis Abnormal mammogram- Primary Abnormal mammogram, unspecified documented in this encounter [facility] note* Diagnosis Mass overlapping multiple quadrants of right breast- Primary Dense breast tissue Family history of breast cancer Family history of malignant neoplasm of breast History of left breast biopsy Other postprocedural status Increased risk of breast cancer documented in this encounter [facility] note* Diagnosis Other abnormal and inconclusive findings on diagnostic imaging of breast documented in this encounter [facility] note* Diagnosis Other abnormal and inconclusive findings on diagnostic imaging of breast documented in this encounter [facility] note* Diagnosis Mass overlapping multiple quadrants of right breast- Primary documented in this encounter [facility] note* Diagnosis Women's annual routine gynecological examination- Primary Encounter for screening for malignant neoplasm of vagina Special screening for malignant neoplasms, vagina Breast cancer screening by mammogram Encounter for colorectal cancer screening Special screening for malignant neoplasms, colon documented in this encounter [facility] note* Diagnosis Recurrent pulmonary embolism (CMS/HCC)- Primary Other pulmonary embolism and infarction Malignant melanoma, unspecified site (CMS/HCC) documented in this encounter [facility] Work Phone: Evaluation note* Diagnosis Mass overlapping multiple quadrants of right breast documented in this encounter [facility] note* Diagnosis Mass overlapping multiple quadrants of right breast- Primary Dense breast tissue documented in this encounter [facility] for referral (narrative)* Diagnostic Procedure Only (Routine) - Pending Review Specialty Diagnoses / Procedures Referred By Contac t Referred To Contact [facility] Diagnoses Gynecologic exam normal Breast cancer screening by mammogram Procedures TANESHA SCREENING W ROBINSON SCREENING DIGITAL BREAST TOMOSYNTHESIS BI SCREENING MAMMOGRAPHY BI 2-VIEW BREAST INC CAD Teresa Daugherty MD [address] [address] [facility] [address] [place], [place] [address] [address] Referral ID Status Reason Start Date Expiration Date Visits Requested Visits Authorized [id number] Pending Review Auto-Generat ed Referral 06/15/2022 07/15/2023 1 1 [facility] for referral (narrative)* Diagnostic Procedure Only (Routine) - Pending Review Specialty Diagnoses / Procedures Referred By Renata turner Referred To Contact [facility] Diagnoses Abnormal mammogram Procedures TANESHA DIAGNOSTIC RIGHT DIAGNOSTIC MAMMOGRAPHY COMPUTER-AIDED DETCJ UNI Lizbeth Montoya PA-C [address] [place] [address] [place] [address] [facility] [address] [place] [address] Referral ID Status Reason Start Date Expiration Date Visits Requested Visits Authorized [id number] Pending Review Auto-Generat ed Referral 02/06/2023 03/07/2024 1 1 * Diagnostic Procedure Only (Routine) - Pending Review Specialty Diagnoses / Procedures Referred By Renata turner Referred To Contact [facility] Diagnoses Abnormal mammogram Procedures US BREAST LTD RIGHT US BREAST UNI REAL TIME WITH IMAGE LIMITED Lizbeth Montoya PA-C [address] [employer] [facility] [employer] [address] [address] [facility] [address] [place] [address] Referral ID Status Reason Start Date Expiration Date Visits Requested Visits Authorized [id number] Pending Review Auto-Generat ed Referral 02/06/2023 03/07/2024 1 1 [facility] for referral (narrative)* Diagnostic Procedure Only (Routine) - Pending Review Specialty Diagnoses / Procedures Referred By Renata turner Referred To Contact [facility] Diagnoses Breast cancer screening by mammogram Procedures TANESHA SCREENING SCREENING MAMMOGRAPHY BI 2-VIEW BREAST INC CAD Lizbeth Montoya PA-C [address] [employer] [facility] [employer] [address] [place] [address] [facility] [address] [place] [address] Referral ID Status Reason Start Date Expiration Date Visits Requested Visits Authorized [id number] Pending Review Auto-Generat ed Referral 07/10/2023 08/08/2024 1 1 [facility] Summary Purpose Family History No Family History Records FoundNo Family History Records FoundNo Family History Records FoundNo Family History Records FoundNo Family History Records FoundNo Family History Records FoundNo Family History Records FoundNo Family History Records FoundNo Family History Records Found Advance Directives No Advanced Directives Records FoundDocuments on File Type Date Recorded Patient Med Care Manager Expl anation Advance Directives and Living Will Power of Business Editor Latest Code Status on File Code Status Date Activated Date Inactivated Comments Full Code 10/01/2018 5:50 AM 10/01/2018 12:57 PM Documents on File Type Date Recorded Patient Med Care Manager Expl anation ACP-Advance Directive ACP-Power of Business Editor Documents on File Type Date Recorded Patient Med Care Manager Expl anation Advance Directive(s) 09/17/2021 8:23 AM Advance Directive(s) 09/13/2021 10:55 AM History of Present Illness * Fanny Ball - 06/12/2020 10:00 AM EDT Patient: Onel Martin 1975 Patient contacted to remind them to arrive 30 minutes prior to appointment time: at [facility] [address]. Patient can park in the [employer] [facility]. Patient is able to eat and drink before appointment. Please wear comfortable clothes and supportivebra. Plan to be here 1-2 hours for procedure. If the patient has any additional questions advised to call [phone]. documented in this encounter Additional Source Comments INFORMATION SOURCE (unrecogn ized section and content) DATE CREATED AUTHOR AUTHOR'S ORGANIZ ATION 12/04/2020 [employer] DATE CREATED AUTHOR AUTHOR'S ORGANIZ ATION 01/12/2021 [facility] DATE CREATED AUTHOR AUTHOR'S ORGANIZ ATION 01/27/2022 [facility] DATE CREATED AUTHOR AUTHOR'S ORGANIZ ATION 04/26/2022 [facility] DATE CREATED AUTHOR AUTHOR'S ORGANIZ ATION 06/16/2022 [facility] DATE CREATED AUTHOR AUTHOR'S ORGANIZ ATION 03/16/2023 [facility] DATE CREATED AUTHOR AUTHOR'S ORGANIZ ATION 09/10/2023 [facility] DATE CREATED AUTHOR AUTHOR'S ORGANIZ ATION 09/22/2023 [facility] Care Teams (unrecognized sec tion and content) 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 Relationship Specialty Start Date End Date Mirna Zarco, SUDHEER.FOOD PREP WORKER [address] [place], [place] [id number] PCP - General Family Practice 05/27/20 Lizbeth Montoya PA-C [address] [place] [address] [place] [address] Women's Health Specialist 01/18/18 Teresa Daugherty MD [address] [place] [address] [place] [address] Gynecology 05/27/20 Jaylene Leonardo MD [address] [address] General Surgery 04/14/21 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 Relationship Specialty Start Date End Date Mirna Zarco, ELECTROSTATIC POWDER COATING TECHNICIAN.FOOD PREP WORKER [address] [facility] [address] [place] [address] PCP - General Family Medicine 05/27/20 Lizbeth Mnotoya PA-C [address] [place] [address] [place] [address] Women's Health Specialist 01/18/18 Teresa Daugherty MD [address] [place] [address] [place] [address] Gynecology 05/27/20 Jaylene Leonardo MD [address] [address] General Surgery 04/14/21 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 Relationship Specialty Start Date [place] [address] PCP - General 08/12/16 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 Relationship Specialty Start [place] [address] PCP - General 08/12/16 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 Relationship Specialty Start [place] [address] PCP - General 08/12/16 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 Relationship Specialty Start [place] [address] PCP - General 08/12/16 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 Relationship Specialty Start Date End Date Mirna Zarco APRN.FOOD PREP WORKER [address] [facility] [address] [place] [address] PCP - General Family Medicine 05/27/20 Lizbeth Montoya PA-C [address] [address] Women's Health Specialist 01/18/18 Teresa Daugherty MD [address] [address] Gynecology 05/27/20 Jaylene Leonardo MD [address] [address] General Surgery 04/14/21 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 Relationship Specialty Start Date End Date Mirna Zarco APRN-FOOD PREP WORKER [address] [facility] [place], [place] [phone] PCP - General 01/08/19 Rigoberto Lew MD [address] [facility], [address] [place] [address] Consulting Physician Hematology and Oncology 09/05/23 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 Relationship Specialty Start Date End Date Mirna Zarco [address] [place], [place] [id number] PCP - General 08/12/16 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 Relationship Specialty Start Date End Date Mirna Zarco [address], [place] [id number] PCP - General 08/12/16 Source Comments (unrecognize d section and content) In the event this informatio n is protected by the Federal Confidentiality of Alcohol and Drug Abuse Patient Records regulations: The Federal rules restrict any use of the information to criminally investigate or prosecute any alcohol or drug abuse patient.[facility] the event this information is protected by the Federal Confidentiality of Alcohol and Drug Abuse Patient Records regulations: The Federal rules restrict any use of the information to criminally investigate or prosecute any alcohol or drug abuse patient.[facility] the event this information is protected by the Federal Confidentiality of Alcohol and Drug Abuse Patient Records regulations: The Federal rules restrict any use of the information to criminally investigate or prosecute any alcohol or drug abuse patient.[facility] Reason for Visit (unrecogniz ed section and content) Reason Comments Results Reason Comments Follow-up Rt breast mass Reason Onset Date Comments Results 03/02/2023 Reason Comments Follow-up FOR RECORDS PERTAINING TO PATIENTS WHO ARE OR HAVE BEEN ENROLLED IN A CHEMICAL DEPENDENCY/SUBSTANCEABUSE PROGRAM, SOME INFORMATION MAY BE OMITTED. This clinical summary was aggregated from multiple sources. Caution should be exercised in using it in the provision of clinical care. This summary normalizes information from multiple sources, and as a consequence, information in this document may materially change the coding, format and clinical context of patient data. In addition, data may be omitted in some cases. CLINICAL DECISIONS SHOULD BE BASED ON THE PRIMARY CLINICAL RECORDS. [facility]. provides no warranty or guarantee of the accuracy or completeness of information in this document.
[2023-12-14 22:22] LABS: Absolute Lymphocyte Count 2.63 X10^3/uL (0.83-4.51); Absolute Neutrophil Count 6.1 X10^3/uL (2.0-7.7); Basophil# 0.09 X10^3/uL; Basophil% 0.9 % (0-1); Eosinophil# 0.11 X10^3/uL; Eosinophils% 1.2 % (0-5); Hematocrit 45.3 % (37-47); Hemoglobin 15.3 g/dL (12.0-15.0); Lymphocyte # 2.63 X10^3/ul (0.83-4.51); Lymphocyte % 27.7 % (19-41); Mean Corp Hgb Conc 33.8 g/dL (32-36); Mean Corpuscular Hgb 32.8 pg (27.0-32.0); Mean Platelet Vol. 10.7 fl (6.2-12.0); Monocyte# 0.55 X10^3/uL; Monocyte% 5.8 % (0-10); NRBC Flagged by Analyzer 0 % (0-5); Neutrophil # 6.09 X10^3/uL (2.7-7.7); Neutrophil % 64.3 % (47-70); Platelet Count 316 K/mm3 (150-450); RBC Distribution Width CV 12.8 % (11.6-14.6); RBC Distribution Width SD 45.5 fl (35.1-43.9); Red Blood Count 4.67 M/mm3 (4.2-5.4); White Blood Count 9.5 K/mm3 (4.4-11.0)
[2023-12-14 22:39] LABS: AST(SGOT) 10 U/L (15-37); Alanine Aminotransfer ALT/SGPT 19 U/L (13-56); Albumin, Serum 3.7 g/dL (3.2-5.0); Alkaline Phosphatase 68 U/L (45-117); Anion Gap 4 (5-15); BUN 11 mg/dL (7-18); BUN/Creat Ratio 14.1 RATIO (10-20); Calcium,Total 9.2 mg/dL (8.5-10.1); Chloride 110 mmol/L (98-107); Cholesterol 195 mg/dL (200); Creatinine, Serum 0.78 mg/dL (0.55-1.02); EST Glomerular Filtration Rate 84 mL/min (>60); Est Glom Filt Rate - Afr Amer 102 mL/min (>60); Globulin 3.6 g/dL (2.2-4.2); Glucose 114 mg/dL (74-106); High Density Lipoprotein 51 mg/dL; Potassium 3.9 mmol/L (3.5-5.1); Protein, Total 7.3 g/dL (6.4-8.2); Sodium Level 139 mmol/L (136-145); Triglycerides 86 mg/dL; Very Low Density Lipoprotein 17 mg/dL (5-40)
[2023-12-14 22:50] LABS: Hemoglobin A1c 5.1 % (3.8-5.6)
[2023-12-18 11:08] LABS: Vitamin D 1,25-Dihydroxy 54.1 pg/mL (24.8-81.5)
[2023-12-18 16:09] LABS: EBV Acute VCA IgM < 36.0 U/mL (0.0-35.9); EBV-VCA IgG > 600.0 U/mL (0.0-17.9)
== END | disposition home or self-care (01) ==
PROVIDERS: PCP Nurse Practitioner; Visit Provider Nurse Practitioner
DX: E55.9 Vitamin D deficiency, unspecified (principal); R53.83 Other fatigue; E78.00 Pure hypercholesterolemia, unspecified; D64.9 Anemia, unspecified
CPT/HCPCS: 80053; 80061; 82652; 83036; 85025; 86664; 86665

== ENCOUNTER → 2024-08-01 | Outpatient (CLI) | payer OTHER, SELFPAY ==
[2024-08-01 03:40] LABS: Absolute Lymphocyte Count 3.31 X10^3/uL (0.83-4.51); Absolute Neutrophil Count 4.8 X10^3/uL (2.0-7.7); Basophil% 1.1 % (0-1); Eosinophils% 1.1 % (0-5); Hematocrit 46.5 % (37-47); Hemoglobin 15.4 g/dL (12.0-15.0); Lymphocyte # 3.31 X10^3/ul (0.83-4.51); Lymphocyte % 37.5 % (19-41); Mean Corp Hgb Conc 33.1 g/dL (32-36); Mean Corpuscular Hgb 33.1 pg (27.0-32.0); Mean Platelet Vol. 10.7 fl (6.2-12.0); Monocyte# 0.47 X10^3/uL; Monocyte% 5.3 % (0-10); NRBC Flagged by Analyzer 0 % (0-5); Neutrophil # 4.83 X10^3/uL (2.7-7.7); Neutrophil % 54.8 % (47-70); Platelet Count 279 K/mm3 (150-450); RBC Distribution Width CV 12.3 % (11.6-14.6); RBC Distribution Width SD 45.5 fl (35.1-43.9); Red Blood Count 4.65 M/mm3 (4.2-5.4); White Blood Count 8.8 K/mm3 (4.4-11.0)
[2024-08-01 03:53] LABS: ALB/GLOB Ratio 1.2 RATIO (0.9-2.4); AST(SGOT) 14 U/L (15-37); Alanine Aminotransfer ALT/SGPT 16 U/L (13-56); Albumin, Serum 4.1 g/dL (3.2-5.0); Alkaline Phosphatase 52 U/L (45-117); Anion Gap 5 (5-15); BUN 14 mg/dL (7-18); BUN/Creat Ratio 16.1 RATIO (10-20); Calcium,Total 9.2 mg/dL (8.5-10.1); Chloride 104 mmol/L (98-107); Cholesterol 222 mg/dL (200); Creatinine, Serum 0.87 mg/dL (0.55-1.02); EST Glomerular Filtration Rate 74 mL/min (>60); Est Glom Filt Rate - Afr Amer 90 mL/min (>60); Globulin 3.5 g/dL (2.2-4.2); Glucose 94 mg/dL (74-106); High Density Lipoprotein 72 mg/dL; Protein, Total 7.6 g/dL (6.4-8.2); Sodium Level 136 mmol/L (136-145); Triglycerides 57 mg/dL; Very Low Density Lipoprotein 11 mg/dL (5-40)
== END | disposition home or self-care (01) ==
PROVIDERS: PCP Nurse Practitioner; Referring Provider Nurse Practitioner; Visit Provider Nurse Practitioner
DX: Z00.00 Encounter for general adult medical examination without abnormal findings (principal)
CPT/HCPCS: 80053; 80061; 85025